=== PATIENT | female | born 1980 | race Caucasian/White ===

== ENCOUNTER 2021-10-10 14:18 | Emergency (ER) | payer OTHER, MEDICAID, SELFPAY ==
[2021-10-10 14:32] VITALS: PULSE 88; RESP 20; TEMP 36.8; O2SAT 100
[2021-10-10 14:37] VITALS: BP 137/96
--- NOTE | 2021-10-10 14:44 | CT_ITS ---
WS: [id number] CT HEAD NONCONTRAST HISTORY: Symptoms of Acute Stroke TECHNIQUE: Contiguous axial imaging performed through the brain in 2.5 mm imaging. Bone and soft tiss ue windows. Sagittal and coronal reformats reviewed. All CT scans at [facility] use at least one of these dose optimization techniques: automated exposure control; mA and/or kV adjustment per pa tient size (includes targeted exams where dose is matched to clinical indication); or iterative recon struction. DLP: 890.32 mGy.cm COMPARISON: None available. No acute intracranial hemorrhage, midline shift or mass effect. No atrophy or prior infarcts or herniation. Ventricles: Normal size with no hydrocephalus. Paranasal sinuses: As visualized are clear. Mastoid air cells: Well pneumatized. Calvarium and scalp: Skull is intact with no soft tissue edema or swelling. CT/CT head wo con* [id number] IMPRESSION: Negative head CT.
--- NOTE | 2021-10-10 14:44 | CT_ITS ---
WS: [id number] CT ANGIOGRAM CEREBRAL AND CAROTID ARTERIES HISTORY: L sided neck pain TECHNIQUE: CT angiogram is performed of the carotid and cerebral arteries. During arterial injection imaging is obtained from the skull vertex to the aortic arch in 1.25 mm imaging. Coronal and sagittal reformats are submitted. Additional multi planar reformats of the carotid and cerebral arteries are submitted, MIP imaging also reviewed. NASCET criteria utilized. [facility] at least one of these dose optimization techniques: automated exposure control; mA and/or kV adjust ment per patient size (includes targeted exams where dose is matched to clinical indication); or iter ative reconstruction. CONTRAST: Omnipaque 350; 95 mL IV. DLP: 2272.65 mGy.cm COMPARISON: Noncontrast head CT 10/10/2021 Carotid Angiogram: Right carotid: Common carotid artery: Arises normally from the innominate artery. No significant plaque or stenosis. Internal carotid artery: No plaque or stenosis. External carotid artery: Patent. Left carotid: Common carotid artery: Arises normally from the aorta. No significant plaque or stenosis. Internal carotid artery: No plaque or stenosis. External carotid artery: Patent. Right vertebral artery: Small caliber but patent. Left vertebral artery: Dominant and patent. Subclavian arteries: RIGHT subclavian arteries patent. Partial obscuration of the LEFT subclavian by contrast injection. The axillary vein is obscured. Upper thorax: Normal. Thyroid gland: Normal. Osseous structures: Unremarkable. CEREBRAL ANGIOGRAM: Intracranial vertebral arteries: Normal with no significant atherosclerosis. Basilar artery: No significant stenosis or occlusion. No aneurysm. Intracranial Internal carotid arteries: Demonstrates no significant stenosis or plaque. Middle cerebral arteries: Normal. Anterior cerebral arteries and ACOM: Normal. Posterior cerebral arteries and PCOM's: Normal. Dural venous sinuses are normally enhancing. Mastoid air cells: Normal. Paranasal sinuses: Normal. Calvarium: Normal. CT/CT angio headneck* [id number] IMPRESSION: 1. Normal carotid arteries. 2. Unremarkable [place].
--- NOTE | 2021-10-10 14:44 | ECG_ITS ---
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 Measurements Intervals [place] Rate: 93 P: 74 CO: 143 QRS: 63 QRSD: 86 T: 21 QT: 361 QTc: 450 Interpretive Statements SINUS RHYTHM NONSPECIFIC ST & T-WAVE ABNORMALITY No previous ECG available for comparison Electronically Signed On 10-10-2021 16:56:45 CDT by Charles Boone M.D. [id number]
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
--- NOTE | 2021-10-10 14:53 | PC.NURSE ---
EKG done at 1452
[2021-10-10 14:56] LABS: Glucose Point of Care 119 mg/dL (70-110)
[2021-10-10] MEDS: iohexol 350 mg/mL 100 mL Btl IV (15:03)
[2021-10-10 15:09] LABS: Basophils # 0.1 10^3/uL (0.0-0.1); Basophils % 1.3 %; Eosinophils # 0.8 10^3/uL (0.0-0.8); Eosinophils % 9.1 %; Hematocrit 43.2 % (37.0-47.0); Hemoglobin 13.4 g/dL (11.5-15.3); Lymphocytes # 3.4 10^3/uL (0.8-4.8); Mean Corpuscular Hemoglobin 29.5 pg (28.0-34.0); Mean Corpuscular Volume 95.2 fl (81-99); Mean Platelet Volume 9.2 fL (7.4-10.4); Monocytes # 0.9 10^3/uL (0.2-0.9); Monocytes % 10.4 %; Neutrophils # 3.35 10^3/uL (1.8-7.7); Neutrophils % 39.1 %; Nucleated Red Blood Cells % 0 %; Platelet Count 382 10^3/cmm (130-400); Red Blood Count 4.54 10^6/uL (4.1-5.3); Red Cell Distribution Width 12.5 % (12.1-15.1); White Blood Count 8.6 10^3/uL (4.0-10.0)
[2021-10-10] MEDS: metoclopramide 5 mg/mL SDV 2 mL 10 MG IVP (15:16)
[2021-10-10] MEDS: acetaminophen 500 mg Tablet PO (15:16)
[2021-10-10] MEDS: diphenhydrAMINE 50 mg/mL SDV 1mL IVP (15:16)
[2021-10-10] MEDS: magnesium sulfate premix 2 GM/50 ML PIGGYBACK IV (15:18)
[2021-10-10] MEDS: sodium chloride 0.9% 1,000 ML 999 ML IV (15:18)
[2021-10-10 15:39] LABS: Alanine Aminotransferase 36 U/L (0-33); Albumin Level 4.2 g/dL (3.5-5.2); Alkaline Phosphatase 51 IU/L (35-105); Aspartate Amino Transferase 29 U/L (0-32); Blood Urea Nitrogen 11 mg/dL (6-20); Calcium 8.7 mg/dL (8.5-10.5); Carbon Dioxide 23 mmol/L (22-29); Chloride 100 mmol/L (98-107); Globulin 3.2 g/dL (1.3-4.6); Glomerular Filtration Rate 55.3 mL/min (90-130); Glucose 115 mg/dL (65-115); Osmolality Calculated 282 mOsm/kg (285-295); Sodium 136 mmol/L (136-145); Total Bilirubin 0.3 mg/dL (0.15-1.2); Total Protein 7.4 g/dL (6.6-8.7)
[2021-10-10 15:44] VITALS: BP 127/75; PULSE 86; RESP 18; O2SAT 100
[2021-10-10 15:45] VITALS: BP 127/75; PULSE 80; RESP 18; O2SAT 100
[2021-10-10 16:00] LABS: INR 0.98 (0.8-1.2)
[2021-10-10 16:01] LABS: Partial Thromboplastin Time 25.5 SECONDS (23.9-36.7)
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
== END 2021-10-10 16:26 | disposition home or self-care (01) ==
PROVIDERS: Emergency Provider Emergency Medicine; PCP Family Medicine
DX: R20.2 Paresthesia of skin (principal); R51.9 Headache, unspecified
CPT/HCPCS: 36416; 70450; 70496; 70498; 80053; 82962; 85025; 85610; 85730; 93005; 96365; 96375; 99284; J1200; J2765; J3475; J7030; Q9967

== ENCOUNTER 2021-10-11 16:01 | Outpatient (CLI) | payer OTHER, MEDICAID, SELFPAY ==
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
== END 2021-10-11 16:02 | disposition home or self-care (01) ==
PROVIDERS: PCP Family Medicine; Visit Provider Family Medicine
DX: M54.12 Radiculopathy, cervical region (principal); M54.16 Radiculopathy, lumbar region; M54.6 Pain in thoracic spine
CPT/HCPCS: 72040; 72072; 72100

== ENCOUNTER 2021-11-08 06:00 | Outpatient (RCR) | payer OTHER, MEDICAID, SELFPAY | END 2021-11-13 23:59 | disposition home or self-care (01) | LOC: SPT 06:00 | PROVIDERS: PCP Family Medicine; Referring Provider Family Medicine; Visit Provider Family Medicine | DX: M54.16 Radiculopathy, lumbar region (principal); M54.12 Radiculopathy, cervical region; M54.6 Pain in thoracic spine | CPT/HCPCS: 97161 ==

== ENCOUNTER 2021-11-14 06:00 | Outpatient (RCR) | payer OTHER, MEDICAID, SELFPAY | END 2021-12-13 23:59 | disposition home or self-care (01) | LOC: SPT 06:00 | PROVIDERS: PCP Family Medicine; Referring Provider Family Medicine; Visit Provider Family Medicine | DX: M54.16 Radiculopathy, lumbar region (principal); M54.12 Radiculopathy, cervical region; M54.6 Pain in thoracic spine | CPT/HCPCS: 97110 ==

== ENCOUNTER → 2021-12-12 12:12 | Outpatient (BNVA) | payer OTHER, MEDICAID, SELFPAY | PROVIDERS: PCP Family Medicine; Visit Provider Family Medicine | DX: R25.2 Cramp and spasm (principal) | CPT/HCPCS: 83735; 84132 ==

== ENCOUNTER → 2022-01-04 08:56 | Outpatient (BNVA) | payer OTHER, MEDICAID, SELFPAY | PROVIDERS: PCP Family Medicine; Visit Provider Obstetrics & Gynecology | DX: Z00.00 Encounter for general adult medical examination without abnormal findings (principal) | CPT/HCPCS: 80061; 82947; 83036 ==

== ENCOUNTER 2022-01-09 11:20 | Outpatient (CLI) | payer OTHER, MEDICAID, SELFPAY ==
--- NOTE | 2022-01-09 11:40 | MR_ITS ---
WS: [id number] MRI LUMBAR SPINE NONCONTRAST TECHNIQUE: Sagittal T1, T2 and STIR imaging. Axial T1 and T2 imaging. CLINICAL INFORMATION: L LUMBAR RADICULOPATHY COMPARISON: Radiograph October 11, 2021 FINDINGS: Counting performed from the craniocervical junction. 5 lumbar vertebral bodies with lumbarized S1 seg ment for the purposes of this dictation. Anterior wedging previously described is T11 considered T12 for the purposes of this dictation. This has a chronic appearance. No edema or retropulsion. L1-L2: Normal. L2-L3: Mild annular bulging. Spinal canal and foramen are patent. Mild facet arthropathy. L3-L4: Mild annular bulging. Mild facet arthropathy. Spinal canal and foramen are patent. L4-L5: Slight retrolisthesis L4 on L5. Mild annular bulging. Small bilateral foraminal protrusions wi th mild LEFT greater than RIGHT foraminal narrowing. Mild facet arthropathy. L5-S1: No significant disc bulging. Mild facet arthropathy. Spinal canal and foramen are patent. S1-S2: S1 is lumbarized. Mild facet arthropathy. Spinal canal and foramen are patent. Visualized pelvic bony structures: Normal. Paravertebral soft tissues: Normal. MR/MR lumbar spine wo con* [id number] IMPRESSION: 1. Counting performed from the craniocervical junction. 5 lumbar type vertebra l bodies. S1 is lumbarized. Recommend plain film correlation prior to surgical intervention. 2. Mild anterior wedging at T12 has a chronic appearance. No retropulsion. No acute compression fractures. 3. Small bilateral foraminal protrusions L4-L5 with mild LEFT greater than RIG HT foraminal narrowing contacts the exiting LEFT greater than RIGHT L4 nerve ro ots. 4. Mild facet arthropathy L3-L4 and L4-L5.
== END 2022-01-09 11:21 | disposition home or self-care (01) ==
PROVIDERS: PCP Family Medicine; Visit Provider Family Medicine
DX: M54.16 Radiculopathy, lumbar region (principal); M48.54XA Collapsed vertebra, not elsewhere classified, thoracic region, initial encounter for fracture; M51.26 Other intervertebral disc displacement, lumbar region; M47.816 Spondylosis without myelopathy or radiculopathy, lumbar region
CPT/HCPCS: 72148

== ENCOUNTER → 2022-05-06 09:13 | Outpatient (BNVA) | payer OTHER, SELFPAY | PROVIDERS: PCP Family Medicine; Visit Provider Family Medicine | DX: E78.1 Pure hyperglyceridemia (principal); Z13.220 Encounter for screening for lipoid disorders | CPT/HCPCS: 80061 ==

== ENCOUNTER → 2022-10-07 10:22 | Outpatient (BNVA) | payer OTHER, SELFPAY | PROVIDERS: PCP Family Medicine; Visit Provider Family Medicine | DX: M25.50 Pain in unspecified joint (principal); Z51.81 Encounter for therapeutic drug level monitoring; R53.81 Other malaise; R53.83 Other fatigue | CPT/HCPCS: 80053; 84439; 84443; 85025; 85651; 86038; 86141 ==

== ENCOUNTER → 2022-12-09 10:57 | Outpatient (BNVA) | payer OTHER, SELFPAY | PROVIDERS: PCP Family Medicine; Visit Provider Anesthesiology Pain Medicine | DX: M47.816 Spondylosis without myelopathy or radiculopathy, lumbar region (principal); M51.36 Other intervertebral disc degeneration, lumbar region | CPT/HCPCS: 99214 ==

== ENCOUNTER → 2022-12-30 14:35 | Outpatient (BNVA) | payer OTHER, SELFPAY | PROVIDERS: PCP Family Medicine; Visit Provider Nurse Practitioner Family | DX: L71.8 Other rosacea (principal); L81.4 Other melanin hyperpigmentation; D22.39 Melanocytic nevi of other parts of face | CPT/HCPCS: 99214 ==

== ENCOUNTER → 2023-01-02 14:47 | Outpatient (BNVA) | payer OTHER, SELFPAY | PROVIDERS: PCP Family Medicine; Visit Provider Anesthesiology Pain Medicine | DX: M54.16 Radiculopathy, lumbar region (principal); M47.816 Spondylosis without myelopathy or radiculopathy, lumbar region; M51.36 Other intervertebral disc degeneration, lumbar region | CPT/HCPCS: 62323; J1040 ==

== ENCOUNTER → 2023-01-16 09:34 | Outpatient (BNVA) | payer OTHER, SELFPAY | PROVIDERS: PCP Family Medicine; Visit Provider Anesthesiology Pain Medicine | DX: M47.816 Spondylosis without myelopathy or radiculopathy, lumbar region; M51.36 Other intervertebral disc degeneration, lumbar region | CPT/HCPCS: 84439; 84443; 85651; 86141; 86431; 99213 ==

== ENCOUNTER → 2023-02-13 14:19 | Outpatient (BNVA) | payer OTHER, SELFPAY | PROVIDERS: PCP Family Medicine; Visit Provider Student in an Organized Health Care Education/Training Program | DX: S73.191A Other sprain of right hip, initial encounter; V89.2XXA Person injured in unspecified motor-vehicle accident, traffic, initial encounter | CPT/HCPCS: 73502; 99203 ==

== ENCOUNTER 2023-02-26 15:24 | Outpatient (CLI) | payer OTHER, MEDICAID, SELFPAY ==
--- NOTE | 2023-02-26 15:33 | MM_ITS ---
WS: [id number] BILATERAL 3D TOMOSYNTHESIS DIGITAL SCREENING MAMMOGRAM WITH CAD CLINICAL INFORMATION: Z12.39 - Encounter for other screening for malignant neop... HISTORY: Screening mammogram. RIGHT breast always larger. COMPARISON: None. TECHNIQUE: Bilateral CC and MLO views. FINDINGS: Fatty-replaced breasts bilaterally. Asymmetric larger RIGHT breast. No suspicious focal mass, asymmet ry, calcifications, or architectural distortion. No evidence of malignancy. A few incidental punctate calcifications. IMPRESSION: MM/[place] [id number] BI-RADS: 2-Benign FOLLOW UP: 1 Year Follow-up Recommend return to annual screening mammography.
== END 2023-02-26 15:25 | disposition home or self-care (01) ==
PROVIDERS: PCP Family Medicine; Visit Provider Nurse Practitioner Women's Health
DX: Z12.31 Encounter for screening mammogram for malignant neoplasm of breast (principal)
CPT/HCPCS: 77063; 77067

== ENCOUNTER → 2023-03-07 15:11 | Outpatient (BNVA) | payer OTHER, MEDICAID, SELFPAY | PROVIDERS: PCP Family Medicine; Visit Provider Obstetrics & Gynecology | DX: R32 Unspecified urinary incontinence (principal) | CPT/HCPCS: 81000 ==

== ENCOUNTER → 2023-04-01 15:17 | Outpatient (BNVA) | payer OTHER, MEDICAID, SELFPAY | PROVIDERS: PCP Family Medicine; Visit Provider Student in an Organized Health Care Education/Training Program | DX: S73.191A Other sprain of right hip, initial encounter (principal); M25.851 Other specified joint disorders, right hip; X58.XXXA Exposure to other specified factors, initial encounter | CPT/HCPCS: 99213 ==

== ENCOUNTER → 2023-04-15 15:08 | Outpatient (BNVA) | payer OTHER, MEDICAID, SELFPAY | PROVIDERS: PCP Family Medicine; Visit Provider Physician Assistant | DX: S22.080A Wedge compression fracture of T11-T12 vertebra, initial encounter for closed fracture; M47.816 Spondylosis without myelopathy or radiculopathy, lumbar region; X58.XXXA Exposure to other specified factors, initial encounter | CPT/HCPCS: 72072; 99203 ==

== ENCOUNTER → 2023-04-30 10:17 | Outpatient (BNVA) | payer OTHER, MEDICAID, SELFPAY | PROVIDERS: PCP Family Medicine; Visit Provider Anesthesiology Pain Medicine | DX: M54.16 Radiculopathy, lumbar region (principal); M47.816 Spondylosis without myelopathy or radiculopathy, lumbar region; M51.36 Other intervertebral disc degeneration, lumbar region | CPT/HCPCS: 99214 ==

== ENCOUNTER → 2023-05-05 09:25 | Outpatient (BNVA) | payer OTHER, MEDICAID, SELFPAY | PROVIDERS: PCP Family Medicine; Visit Provider Family Medicine | DX: E03.9 Hypothyroidism, unspecified (principal) | CPT/HCPCS: 84439; 84443 ==

== ENCOUNTER 2023-05-22 07:04 | Outpatient (CLI) | payer OTHER, MEDICAID, SELFPAY ==
--- NOTE | 2023-05-22 07:15 | MR_ITS ---
WS: [id number] MRI THORACIC SPINE WITHOUT CONTRAST TECHNIQUE: Sagittal T1, T2 and STIR imaging. Axial T2 imaging. Noncontrast imaging obtained. CLINICAL INFORMATION: back pain COMPARISON: None. FINDINGS: Mild thoracic curve. Mild thoracic kyphosis. No acute compression fractures. Chronic anterior wedging at T12. No edema. Minimal disc bulging at T11-T12 and T12-L1. No significant spinal canal or foramin al narrowing. Mild facet arthropathy lower thoracic spine. Normal caliber thoracic aorta. Adrenal glands are normal. Normal paravertebral soft tissues. No other suspicious findings. IMPRESSION: 1. Mild thoracic curve and mild thoracic kyphosis. No acute compression fractures. 2. Mild chronic anterior wedging at T12. No edema. 3. Mild facet arthropathy lower thoracic spine. 4. No other suspicious findings.
== END 2023-05-22 07:05 | disposition home or self-care (01) ==
LOC: RAD 07:04
PROVIDERS: PCP Family Medicine; Visit Provider Physician Assistant
DX: M40.204 Unspecified kyphosis, thoracic region (principal); M48.54XA Collapsed vertebra, not elsewhere classified, thoracic region, initial encounter for fracture; M47.814 Spondylosis without myelopathy or radiculopathy, thoracic region
CPT/HCPCS: 72146

== ENCOUNTER → 2023-05-29 08:51 | Outpatient (BNVA) | payer OTHER, MEDICAID, SELFPAY | PROVIDERS: PCP Family Medicine; Visit Provider Physician Assistant | DX: M47.816 Spondylosis without myelopathy or radiculopathy, lumbar region (principal); S22.080D Wedge compression fracture of T11-T12 vertebra, subsequent encounter for fracture with routine healing; X58.XXXD Exposure to other specified factors, subsequent encounter; S73.191A Other sprain of right hip, initial encounter; X58.XXXA Exposure to other specified factors, initial encounter | CPT/HCPCS: 99214 ==

== ENCOUNTER → 2023-06-05 10:20 | Outpatient (BNVA) | payer OTHER, MEDICAID, SELFPAY | PROVIDERS: PCP Family Medicine; Visit Provider Anesthesiology Pain Medicine | DX: M51.36 Other intervertebral disc degeneration, lumbar region (principal); M47.816 Spondylosis without myelopathy or radiculopathy, lumbar region | CPT/HCPCS: 99214 ==

== ENCOUNTER → 2023-06-19 15:43 | Outpatient (BNVA) | payer OTHER, MEDICAID, SELFPAY | PROVIDERS: PCP Family Medicine; Visit Provider Nurse Practitioner Family | DX: R68.89 Other general symptoms and signs (principal); B34.9 Viral infection, unspecified | CPT/HCPCS: 87804 ==

== ENCOUNTER → 2023-07-01 15:33 | Outpatient (BNVA) | payer OTHER, MEDICAID, SELFPAY | PROVIDERS: PCP Family Medicine; Visit Provider Orthopaedic Surgery | DX: M47.22 Other spondylosis with radiculopathy, cervical region (principal) | CPT/HCPCS: 72050; 99214 ==

== ENCOUNTER → 2023-07-03 10:04 | Outpatient (BNVA) | payer OTHER, SELFPAY | PROVIDERS: PCP Family Medicine; Visit Provider Anesthesiology Pain Medicine | DX: M47.816 Spondylosis without myelopathy or radiculopathy, lumbar region; M51.36 Other intervertebral disc degeneration, lumbar region | CPT/HCPCS: 99214 ==

== ENCOUNTER → 2023-08-04 09:57 | Outpatient (BNVA) | payer OTHER, SELFPAY | PROVIDERS: PCP Family Medicine; Visit Provider Family Medicine | DX: R53.83 Other fatigue | CPT/HCPCS: 83036; 84443 ==

== ENCOUNTER 2023-08-28 15:57 | Outpatient (CLI) | payer OTHER, SELFPAY ==
--- NOTE | 2023-08-28 16:45 | MR_ITS ---
WS: [id number] MRI CERVICAL SPINE NONCONTRAST TECHNIQUE: Sagittal T1, T2 and STIR imaging. Axial T2, gradient, and fiesta imaging. CLINICAL INFORMATION: neck pain COMPARISON: None. FINDINGS: Straightening with slight reversal of normal cervical lordosis. Disc bulging worse at C3-C4 C4-C5 C5- C6 and C6-C7. No high-grade central canal stenosis. Cord signal is normal. Slight anterolisthesis C2 on C3. C2-C3: Normal. C3-C4: Mild LEFT and no significant RIGHT foraminal narrowing. Mild facet arthropathy. C4-C5: Mild disc osteophytic ridging. Mild LEFT and no significant RIGHT foraminal narrowing. Mild fa cet arthropathy. Spine canal is patent. C5-C6: Disc osteophyte complex with endplate ridging. Moderate LEFT and mild RIGHT bony foraminal alpa rowing. Uncovertebral joint hypertrophy. Mild facet arthropathy. C6-C7: Mild disc osteophyte complex with endplate ridging. Moderate to severe LEFT and no significant RIGHT foraminal narrowing. Spinal canal is patent. C7-T1: Spinal canal and foramen are patent. Visualized brain stem structures: Normal. Prevertebral soft tissues: Normal. IMPRESSION: 1. Straightening of the normal cervical dosis with slight reversal. 2. Slight anterolisthesis C2 on C3. 3. Moderate LEFT C5-C6 and moderate to severe LEFT C6-7 bony foraminal narrowing. 4. Mild disc osteophyte complexes C5-C6 and C6-C7.
== END 2023-08-28 15:58 | disposition home or self-care (01) ==
LOC: RAD 15:58
PROVIDERS: PCP Family Medicine; Visit Provider Orthopaedic Surgery
DX: M48.02 Spinal stenosis, cervical region (principal); M25.78 Osteophyte, vertebrae
CPT/HCPCS: 72141

== ENCOUNTER → 2023-12-11 09:49 | Outpatient (BNVA) | payer OTHER, SELFPAY | PROVIDERS: PCP Family Medicine; Visit Provider Family Medicine | DX: E03.9 Hypothyroidism, unspecified (principal); R25.2 Cramp and spasm; E55.9 Vitamin D deficiency, unspecified | CPT/HCPCS: 80048; 82306; 83735; 84439; 84443 ==

== ENCOUNTER → 2024-02-04 14:27 | Outpatient (BNVA) | payer OTHER, SELFPAY | PROVIDERS: PCP Family Medicine; Visit Provider Nurse Practitioner Women's Health | DX: Z12.4 Encounter for screening for malignant neoplasm of cervix (principal) | CPT/HCPCS: 87624 ==

== ENCOUNTER 2024-03-31 14:24 | Outpatient (CLI) | payer OTHER, SELFPAY ==
--- NOTE | 2024-03-31 14:28 | MM_ITS ---
WS: [id number] Bilateral screening 3D tomosynthesis digital mammogram, 03/31/2024 2:35 PM Clinical Data: Z12.39 - Encounter for other screening for malignant neop... Comparison: 02/26/2023 Findings: No spiculated masses or clustered calcifications are seen. There are no secondary signs of carcinoma . The right breast is larger than the left. MM/MM scr BI tomosynthesis [id number] Impression: Negative bilateral mammogram unchanged. Recommend annual screening mammograms. BIRADS: 1 - Negative. FOLLOW UP: 1 Year Follow-up DENSITY: The breasts are almost entirely fatty. The CAD land checker was used
== END 2024-03-31 14:25 | disposition home or self-care (01) ==
LOC: RAD 14:25
PROVIDERS: PCP Family Medicine; Visit Provider Nurse Practitioner Women's Health
DX: Z12.31 Encounter for screening mammogram for malignant neoplasm of breast (principal)
CPT/HCPCS: 77063; 77067

== ENCOUNTER → 2024-04-07 13:12 | Outpatient (BNVA) | payer OTHER, SELFPAY | PROVIDERS: PCP Family Medicine; Visit Provider Nurse Practitioner Family | DX: J02.9 Acute pharyngitis, unspecified (principal) | CPT/HCPCS: 87880 ==

== ENCOUNTER 2024-06-08 12:46 | Outpatient (RCR) | payer OTHER, SELFPAY | END 2024-06-15 23:59 | disposition home or self-care (01) | LOC: SPT 12:46 | PROVIDERS: Visit Provider Orthopaedic Surgery | DX: M25.851 Other specified joint disorders, right hip (principal) | CPT/HCPCS: 97110; 97116; 97161 ==

== ENCOUNTER 2024-06-16 06:00 | Outpatient (RCR) | payer OTHER, SELFPAY | END 2024-07-16 23:59 | disposition home or self-care (01) | LOC: SPT 06:00 | PROVIDERS: Visit Provider Orthopaedic Surgery | DX: Z98.890 Other specified postprocedural states (principal); M25.851 Other specified joint disorders, right hip | CPT/HCPCS: 97110 ==

== ENCOUNTER → 2024-06-25 10:18 | Outpatient (BNVA) | payer OTHER, SELFPAY | PROVIDERS: PCP Family Medicine; Visit Provider Family Medicine | DX: E03.9 Hypothyroidism, unspecified (principal) | CPT/HCPCS: 84439; 84443 ==

== ENCOUNTER 2024-07-17 06:00 | Outpatient (RCR) | payer OTHER, SELFPAY | END 2024-08-13 23:59 | disposition home or self-care (01) | LOC: SPT 06:00 | PROVIDERS: PCP Family Medicine; Visit Provider Orthopaedic Surgery | DX: Z98.890 Other specified postprocedural states (principal); M25.851 Other specified joint disorders, right hip | CPT/HCPCS: 97110 ==

== ENCOUNTER 2024-08-14 06:30 | Outpatient (RCR) | payer OTHER, SELFPAY | END 2024-09-13 23:59 | disposition home or self-care (01) | LOC: SPT 06:30 | PROVIDERS: PCP Family Medicine; Visit Provider Orthopaedic Surgery | DX: Z98.890 Other specified postprocedural states (principal); M25.851 Other specified joint disorders, right hip | CPT/HCPCS: 97110 ==

== ENCOUNTER 2024-09-14 05:00 | Outpatient (RCR) | payer OTHER, SELFPAY | END 2024-10-13 23:59 | disposition home or self-care (01) | LOC: SPT 05:00 | PROVIDERS: PCP Family Medicine; Visit Provider Orthopaedic Surgery | DX: M25.851 Other specified joint disorders, right hip (principal); Z98.890 Other specified postprocedural states | CPT/HCPCS: 97110 ==

== ENCOUNTER 2025-04-01 09:57 | Outpatient (CLI) | payer OTHER, SELFPAY ==
--- NOTE | 2025-04-01 10:00 | MM_ITS ---
WS: [email or web address] BILATERAL SCREENING DIGITAL TOMOSYNTHESIS MAMMOGRAM WITH CAD HISTORY: Z12.39 - Encounter for other screening for malignant neop... COMPARISON: 03/31/2024 Bilateral CC and MLO views with tomosynthesis and synthetic mammography submitted. Computer aided detection analyzed. Breast composition: There are scattered areas of fibroglandular density. No suspicious masses, microcalcifications or architectural distortion. MM/MM scr BI tomosynthesis [id number] IMPRESSION: BI-RADS: 1 - Negative. FOLLOW UP: 1 Year Follow-up
== END 2025-04-01 09:58 | disposition home or self-care (01) ==
LOC: RAD 09:58
PROVIDERS: PCP Family Medicine; Visit Provider Nurse Practitioner Women's Health
DX: Z12.31 Encounter for screening mammogram for malignant neoplasm of breast (principal); R92.323 Mammographic fibroglandular density, bilateral breasts
CPT/HCPCS: 77063; 77067

== ENCOUNTER 2025-04-27 01:24 | Emergency (ER) | payer OTHER, SELFPAY ==
[2025-04-27] VITALS (10 sets, daily range): BP systolic 95–140; BP diastolic 61–96; PULSE 79–104; RESP 16; TEMP 36.5; O2SAT 95–100; BMI 27.6
--- OUTSIDE RECORDS SUMMARY | 2025-04-27 01:32 | XMS_ITS | Encounter Summary ---
Author Organization [facility] Address [address] [place] [address] Care Team Providers Care Box Maker Name Role Phone Gurjit Echevarria MD Primary Care Provider Encounter Details Date Type Department Care Team (Late Contact Info) Description 04/20/2025 External Device Data [facility] Provider, Abstract NO ADDRESS ON FILE Social History Tobacco Use Types Packs/Day Years Used Date Smoking Tobacco: Never Smokeless Tobacco: Never Alcohol Use Standard Drinks/Week Comments No 0 (1 standard drink = 0.6 oz pur e alcohol) Feeling Safe Answer Date Recorded Are you in a relationship wi th someone who hurts you emotionally and/or physically? 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 Gender Identity Female 12/25/2023 9:51 PM CDT Sexual Orientation Straight 12/25/2023 9: 51 PM CDT documented as of this encounter Plan of Treatment Upcoming Encounters Date Type Department Care Team (Late Contact Info) Description 07/04/2025 2:30 PM PLAYER PIANO TECHNICIAN Office Visit [facility] [place] [address] [place] [address] Gaby Levy NP [address] [place] [address] documented as of this encounter Visit Diagnoses Not on filedocumented in this encounter Care Teams Box Maker Relationship Specialty Start Date End Date Gurjit Echevarria MD [facility] [place] [address] PCP - General Family Practice 04/20/24 documented as of this encounter
--- OUTSIDE RECORDS SUMMARY | 2025-04-27 01:32 | XMS_ITS | Clinical Summary ---
Author Organization [facility] Address [address] Welch: [place] [address] Care Team Providers Care Heel Seat Sander Name Role Phone Gurjit Echevarria MD Primary Care Provider [phone] Allergies Active Allergy Reactions Criticality Noted Date Comments Adhesive Rash Low 07/29/2023 Kiwi Other (See Comments) 05/25/2024 Lips became itchy Medications levothyroxine 75 mcg tablet Take 75 mcg by mouth daily in the morning. Active cetirizine (ZyrTEC) 5 mg tablet Take 5 mg by mouth daily. Active melatonin 1 mg Tablet Take by mouth nightly as needed. Active Magnesium Hydroxide 400 mg (170 mg magnesium) Tablet, Chewable Take by mouth. Activ e semaglutide (OZEMPIC SUBCUT) Inject by subcutaneous injection every 7 days. Active omeprazole (PriLOSEC) 20 mg Capsule, Delayed Release(E.C.) Take 20 mg by mouth daily. Active vit-iron fumarate-fa (JORJE ) 28 mg iron- 800 mcg Tablet Take 1 Tablet by mouth daily. Active Tyler Fe /, 28, 1 mg-20 mcg (21)/75 mg (7) tablet Take 1 Tablet by mouth daily at bedtime. 4 Active HYDROcodone-sylvester taminophen (NORCO) 5-325 mg tabletIndicatio ns:Tear of right acetabular labrum, initial encounter Take 1 Tablet by mouth every 6 hours as needed for Pain, Moderate. Max Daily Amount: 4 Tablets 42 Tablet 4 Active diazePAM (Valium) 5 mg tabletIndicatio ns:Tear of right acetabular labrum, initial encounter Take 1 Tablet (5 mg) by mouth every 8 hours as needed for Spasm. 30 Tablet 4 Active naloxone (NARCAN) 4 mg/spray [place] [facility], Non-Aerosol EMERGENCY USE ONLY: Administer 1 spray (4 mg) in one nostril one time. May repeat in alternating nostrils every 2-3 min until responsive or EMS arrives. 2 Each 3 4 Active trospium (SANCTURA XR) 60 mg Extended Release 24 hour capsule Take 1 Capsule (60 mg) by mouth daily. 90 Capsule 3 5 Active baclofen (LIORESAL) 10 mg tablet take 1 tablet by mouth twice daily as needed for 30 days Active Active Problems Problem Noted Date Diagnosed Date Depression 06/12/2012 Anxiety 08/06/2011 HSIL on Pap smear of cervix 02/21/2011 Large breasts 11/21/2010 Eczema 11/21/2010 Resolved Problems Problem Noted Date Diagnosed Date Resolved Date Inter-twin discordance, antepartum 07/05/2009 08/06/2011 GBS (group B Streptococcus c arrier), +RV culture, currently 06/23/2009 12/28/2010 , twins 04/14/2009 12/28/2010 Supervision of normal first 12/27/2008 12/28/2010 BV (Bacterial Vaginosis) - treated 12/2212/27/2008 08/06/2011 Encounters Date Type Department Care Team Description 04/20/2025 External Device Data [facility] ABSTRACTION Provider, Abstract 04/13/2025 External Device Data [facility] ABSTRACTION Provider, Abstract 04/05/2025 External Device Data [facility] ABSTRACTION Provider, Abstract from Last 3 Months Immunizations Immunization Administration Dates Next Due (M-M-R II/PRIORIX)(12 MO UP) MEASLES, MUMPS AND RUBELLA VIRUS VACCINE, 0.5 ML IM/SUBCUT 09/26/2000 (TDVAX)(7 YRS UP) TETANUS AN D DIPHTHERIA TOXOIDS, ADSORBED (2 LF OF TETANUS TOXOID AND 2 LF OF DIPHTHERIA TOXOID), 0.5ML (PF), IM 09/13/2005,01/01/1996 Hepatitis A Vaccine 09/26/2000,03/28/2000 Hepatitis B Vaccine 09/26/2000,05/07/2000,1999 Influenza Seasonal Unspecifi ed Formulation IM 03/18/2011,03/13/2010 Family History Medical History Relation Name Comments Arthritis-osteo Father High Cholesterol Father Diabetes Maternal Grandfather Diabetes Maternal Grandmother Lung Cancer Maternal Grandmother Diabetes Mother High Cholesterol Mother Hypertension Mother Other Mother Ovarian Cyst Cancer Other 1 GF leukemia/skin Heart Disease Other 1 GF Emphysema Other 2 GM Relation Name Status Comments Brother Alive Father Alive Maternal Grandfather Maternal Grandmother Mother Alive Other 1 GF Other 2 GM Social History Tobacco Use Types Packs/Day Years Used Date Smoking Tobacco: Never Smokeless Tobacco: Never Tobacco Cessation:Counseling Given: Not Answered Alcohol Use Standard Drinks/Week Comments No 0 (1 standard drink = 0.6 oz pur e alcohol) Feeling Safe Answer Date Recorded Are you in a relationship wi th someone who hurts you emotionally and/or physically? No 06/07/2024 Comments No Sex and Gender Information Value Date Recorded Sex Assigned at Female 12/25/2023 9:51 PM CDT Legal Sex Female 3:23 PM [employer] Gender Identity Female 12/25/2023 9:51 PM CDT Sexual Orientation Straight 12/25/2023 9: 51 PM CDT Last Filed Vital Signs Vital Sign Reading Time Taken Comments Blood Pressure 106/70 09/02/2024 10:04 AM CDT Pulse 86 06/07/2024 5:00 PM [employer] Temperature 36.8 C (98.3 F) 06/07/2024 4:07 PM [employer] Respiratory Rate 9 06/07/2024 4:00 PM [employer] Oxygen Saturation 97% 06/07/2024 5:00 PM [employer] Inhaled Oxygen Concentration - - Weight 94.7 kg (208 lb 11.2 oz) 025 10:04 AM CDT Height 170.2 cm (5' 7 ) 09/02/2024 10:0 4 AM CDT Body Mass Index 32.69 09/02/2024 10:04 AM CDT Plan of Treatment Upcoming Encounters Date Type Department Care Team (Late st Contact Info) Description 07/04/2025 2:30 PM [employer] Office Visit [address] [place] [phone] Gaby Levy NP [address] [phone] Health Maintenance Due Date Last Done Comments Pre-Diabetes and Diabetes Screening 1982 HPV/Cotest (21-29) 10/10/2003 DTAP/TDAP/TD VACCINES (2 - Tdap) 09/14/2005 09/14/19, 01/01/1996 HPV VACCINES (1 - 3-dose SCD M series) 2009 HPV/Cotest (30-65) 2012 CERVICAL CANCER SCREENING 10/15/2014 PAP SMEAR 10/15/2014 10/16/2011, 06/17, 11/21/2010, Additional history exists BREAST CANCER SCREENING 2022 INFLUENZA VACCINE (#1) 2025 , 03/24/2023, 03/18/2011, Additional history exists HEPATITIS B VACCINES Completed 09/26/2000, 09/26/2000, 05/07/2000, Additional history exists COVID-19 Vaccine Completed 03/08/2024, 10/2020, 08/28/2020 Medical Devices Implanted Type Area Home Health Aide Caregiver Device Identifier Shelf Expiration Date Model / Serial / Lot [place] Suture Pivot Nanotack 1.4mm [id number] - [id number] Implanted:Qty: 1 on 06/07/2024 by Sergio Vazquez III, MD at [facility] [place] Right: Hip [employer] - ENDOSCOPY [id number] 06/01/2025 [id number] / / [id number] [place] Suture 2.4mm Cinchloc [id number] - [id number] Implanted:Qty: 1 on 06/07/2024 by Sergio Vazquez III, MD at [facility] [place] Right: Hip [employer] - ENDOSCOPY [id number] 06/28/2025 [id number] / / [id number] [place] Suture 2.4mm Cinchloc [id number] - [id number] Implanted:Qty: 1 on 06/07/2024 by Sergio Vazquez III, MD at [facility] [place] Right: Hip [employer] - ENDOSCOPY [id number] 07/08/2025 [id number] / / [id number] [place] Suture 2.4mm Cinchloc [id number] - [id number] Implanted:Qty: 1 on 06/07/2024 by Sergio Vazquez III, MD at [facility] [place] Right: Hip [employer] - ENDOSCOPY [id number] 06/28/2025 [id number] / / [id number] [place] Suture Tape Xbraid S 2-N 39in Wht/Blck [id number] - [id number] Implanted:Qty: 1 on 06/07/2024 by Sergio Vazquez III, MD at [facility] [place] Right: Hip [employer] - ENDOSCOPY [id number] 11/13/2028 [id number] / / [id number] Insurance [employer] OA Advance Directives For more information, please contact: [phone] * Full Code (Latest Code Status on File) Date Activated Date Inactivated Comments 06/07/2024 11:26 AM 06/07/2024 7:23 PM Care Teams Heel Seat Sander Relationship Specialty Start Date End Date Gurjit Echevarria MD [address] [place] [phone] PCP - General Family Practice 04/20/24
[2025-04-27 02:05] LABS: Add Urine Microscopic? YES; UA Manual Slide Review YES
[2025-04-27 02:08] LABS: HCG Qualitative Urine. Negative (Negative)
[2025-04-27 02:56] LABS: Glucose Urine UA Negative (Normal); Nitrate Urine Negative (Negative); Specific Gravity, Urine 1.021 (1.005-1.030)
[2025-04-27 03:01] LABS: Add Urine Microscopic? YES
--- NOTE | 2025-04-27 03:11 | CTR_ITS ---
PROCEDURE INFORMATION: Exam: CT Abdomen And Pelvis Without Contrast Exam date and time: 04/27/2025 3:24 AM Age: 44 years old Clinical indication: Abdominal pain; Additional info: Llq/groin pain TECHNIQUE: Imaging protocol: Computed tomography of the abdomen and pelvis without contrast. Radiation optimization: All CT scans at this facility use at least one of these dose optimization techniques: automated exposure control; mA and/or kV adjustment per patient size (includes targeted exams where dose is matched to clinical indication); or iterative reconstruction. COMPARISON: CR XR hip RT 2-3V wo/w pel* [id number] 02/13/2023 2:37 PM RADIATION DOSE METRICS: Total DLP (mGy-cm): 655.21 FINDINGS: Liver: Normal. No mass. Gallbladder and biliary ducts: Normal. No calcified stones. No ductal dilation. Pancreas: Normal. No ductal dilation. Spleen: Normal. No splenomegaly. Adrenal glands: Normal. No mass. Kidneys and ureters: No nephrolithiasis, hydronephrosis, or obstructive uropathy. Stomach and bowel: Unremarkable. No obstruction. No mucosal thickening. Appendix: No evidence of appendicitis. Intraperitoneal space: Unremarkable. No free air. No significant fluid collection. Vasculature: Unremarkable. No abdominal aortic aneurysm. Lymph nodes: Unremarkable. No enlarged lymph nodes. Urinary bladder: Unremarkable as visualized. Reproductive: Unremarkable as visualized. Bones/joints: Unremarkable. No acute fracture. Soft tissues: Unremarkable. CT/CT kidney stone [id number] IMPRESSION: No nephrolithiasis, hydronephrosis, or obstructive uropathy.
[2025-04-27] MEDS: ondansetron 2 mg/ML SDV 2 mL 4 MG IVP (03:17)
[2025-04-27 03:24] LABS: Hematocrit 36.4 % (36-47); Hemoglobin 12.50 g/dL (11.27-16.99); Mean Corpuscular HGB Conc 34.3 g/dL (30-55); Mean Corpuscular Hemoglobin 31.6 pg (27-33); Mean Corpuscular Volume 91.9 fl (85-98); Nucleated Red Blood Cells % 0 %; Platelet Count 410 10^3/cmm (157-399); Red Blood Count 3.96 10^6/uL (3.85-5.65); White Blood Count 10.30 10^3/uL (3.29-11.43)
--- NOTE | 2025-04-27 03:28 | W.ED.FEMALGU ---
HPI - Female Genitourinary General: Chief complaint: Urogenital-Female Stated complaint: Pelvis and ABD Pain\N Time Seen by Provider: 04/27/25 01:28 History of Present Illness: Patient is a 44-year-old female presenting with a chief complaint of suprapubic pain, discomfort with urination/burning pain w/urination, radiation of pain to the left upper quadrant and back. Patient states that symptoms started this evening and woke her up from sleep. She has not had fever, chills or malaise. She denies any chest pain or shortness of breath. She denies hemoptysis, syncope or leg swelling. No vomiting. She has felt nauseated when the pain was at its worst, 10 at home. Patient denies any abnormal vaginal discharge, pain with intercourse or new sexual partners. No change in bowel habits. She does not have a history of kidney stone. Related Data Home Medications ?Medication ?Instructions ?Recorded ?Confirmed cetirizine 10 mg tablet (Zyrtec) 10 mg PO BEDTIME 10/10/21 02/15/25 trospium 60 mg capsule,extended 60 mg PO DAILY 07/29/23 02/15/25 release 24 hr semaglutide 1 mg/dose (4 mg/3 mL) 1 mg SUBCUT 01/26/24 02/15/25 subcutaneous pen injector Previous Rx's ?Medication ?Instructions ?Recorded ivermectin 1 % topical cream 1 applic topical DAILY #45 grams 06/05/22 (Soolantra) etonogestrel 0.12 mg-ethinyl 1 vag ring vaginal .ONCE EVERY 4 02/15/25 estradiol 0.015 mg/24 hr vaginal WEEKS #3 ea ring (NuvaRing) levothyroxine 75 mcg tablet See Rx Instructions .Route 02/24/25 .COMPLEX #90 tabs COVID vaccine #1 ea 03/15/25 sulfamethoxazole 800 1 tab PO BID 7 days #14 tabs 04/27/25 mg-trimethoprim 160 mg tablet (Bactrim DS) Allergies Allergy/AdvReac Type Severity Reaction Status Date / Time adhesive Allergy ALGY-Rash Verified 02/15/25 15:32 PFSH ED PFS: Medical History (Updated 04/27/25 @ 05:41 by Loreto Middleton MD) Hypothyroidism followed by [facility] Eczema Controlled with medication-allergy medicine. Surgical History S/P LEEP Had a LEEP procedure in 2010 at [place] for an abnormal Pap smear. States that all Pap smears after this have been normal. Family History Mother Hypertension Diabetes Grandmother Lung cancer Paternal Grandfather Diabetes Paternal Heart disease paternal Leukemia maternal Brother Diabetes Family/Other Breast cancer paternal aunt; diagnosed at age 70 Advanced cirrhosis of liver paternal aunt Denies family history of Colon cancer Ovarian cancer Hyperlipidemia Uterine cancer Thyroid disease Stroke Social History Smoking and tobacco/nicotine status: never used tobacco/nicotine Alcohol intake: never Substance/Drug Use: never Physical Exam Narrative: EXAM NARRATIVE: Vital signs were reviewed. Patient is alert and oriented. Patient is breathing comfortably, no increased WOB or accessory muscle use. SpO2 is above 95% on RA. Patient has clear lungs b/l, no rhonchi, wheezing or crackles. No hypotension or tachycardia. Abdomen is soft, nondistended. Patient has mild suprapubic discomfort. No CVA tenderness w/percussion of the flanks. Patient is moving all extremities, no deformity or gross injury. No lower extremity edema or asymmetry. Course Vital Signs: Vital signs: Vital Signs Temperature 97.7 F 04/27/25 01:25 Pulse Rate 83 04/27/25 06:04 Respiratory Rate 16 04/27/25 06:04 Blood Pressure 95/63 04/27/25 06:04 Pulse Oximetry 98 04/27/25 06:04 Oxygen Delivery Me thod Room Air 04/27/25 01:25 MDM - Female Medical Decision Making 44-year-old female presents with a chief complaint of suprapubic abdominal pain, dysuria, pain radiating to the left upper abdomen and back. Differential diagnosis includes but is limited to, urinary tract infection, pyelonephritis, nephrolithiasis, cervicitis, PID, ovarian torsion, ovarian cyst, , ectopic , appendicitis, other. On exam, patient is helically stable and nontoxic-appearing. She was evaluated CBC, BMP, UA, beta-hCG, CT of the abdomen pelvis stone protocol. She was treated with IV Toradol, IV Zofran. She has a normal white blood cell count, is afebrile and does not have a definitive CVA tenderness. Her presentation is not consistent with urinary tract infection. Patient appears to have hematuria, increased white blood cells and 1+ bacteria which may be consistent with a urinary tract infection. She is negative for chlamydia, gonorrhea, denies abnormal pelvic discharge, new sexual partners, pain with intercourse; have lower suspicion for cervicitis and PID. CT shows: CT abd/pelvis: IMPRESSION: No nephrolithiasis, hydronephrosis, or obstructive uropathy. Presentation is most consistent w/UTI/cystitis. Patient was treated with Bactrim. At this time, pain is well-controlled, she is comfortable and is appropriate for discharge. Patient was counseled on supportive care at home, given return precautions and discharged in stable condition with recommendation for outpatient follow-up with primary care nurse or doctor. Lab Data 04/27/25 01:43 04/27/25 01:43 Radiology Impressions Abdomen/Pelvis CT 04/27/25 03:11 IMPRESSION: No nephrolithiasis, hydronephrosis, or obstructive uropathy. Laboratory Results WBC 10.30 10^3/uL (3.29-11.43) 04/27/25 01:43 RBC 3.96 10^6/uL (3.85-5.65) 04/27/25 01:43 Hgb 12.50 g/dL (11.27-16.99) 04/27/25 01:43 Hct 36.4 % (36-47) 04/27/25 01:43 MCV 91.9 fl (85-98) 04/27/25 01:43 MCH 31.6 pg (27-33) 04/27/25 01:43 MCHC 34.3 g/dL (30-55) 04/27/25 01:43 RDW 12.8 % (12.1-15.1) 04/27/25 01:43 Plt Count 410 10^3/cmm (157-399) H 04/27/25 01:43 MPV 9.4 fL (7.4-10.4) 04/27/25 01:43 Neut % (Auto) 55.1 % 04/27/25 01:43 Lymph % (Auto) 34.5 % 04/27/25 01:43 [place] % (Auto) 7.1 % 04/27/25 01:43 Eos % (Auto) 2.4 % 04/27/25 01:43 Baso % (Auto) 0.7 % 04/27/25 01:43 Neut # (Auto) 5.68 10^3/uL (1.8-7.7) 04/27/25 01:43 Lymph # (Auto) 3.6 10^3/uL (0.8-4.8) 04/27/25 01:43 [place] # (Auto) 0.7 10^3/uL (0.2-0.9) 04/27/25 01:43 Eos # (Auto) 0.3 10^3/uL (0.0-0.8) 04/27/25 01:43 Baso # (Auto) 0.1 10^3/uL (0.0-0.1) 04/27/25 01:43 Nucleated RBC % (auto) 0 % 04/27/25 01:43 Nucleated RBCs # 0.0 /100WBC 04/27/25 01:43 Sodium 136 mmol/L (136-145) 04/27/25 01:43 Potassium 3.3 mmol/L (3.5-5.1) L 04/27/25 01:43 Chloride 100 mmol/L (98-107) 04/27/25 01:43 Carbon Dioxide 23 mmol/L (22-29) 04/27/25 01:43 Anion Gap 16.3 (5-19) 04/27/25 01:43 BUN 10 mg/dL (6-20) 04/27/25 01:43 Creatinine 1.0 mg/dL (0.5-0.9) H 04/27/25 01:43 GFR Calculation 60.8 mL/min (90-130) L 04/27/25 01:43 Glucose 104 mg/dL (65-115) 04/27/25 01:43 Calculated Osmolality 281 mOsm/kg (285-295) L 04/27/25 01:43 Calcium 9.4 mg/dL (8.5-10.5) 04/27/25 01:43 HCG, Qual Negative (Negative) 04/27/25 01:43 Urine Color Yellow (Yellow) 04/27/25 02:40 Urine Appearance Cloudy (CLEAR) A 04/27/25 02:40 Urine pH 5.5 (5-7) 04/27/25 02:40 Ur Specific [place] 1.021 (1.005-1.030) 04/27/25 02:40 Urine Protein Negative (Negative) 04/27/25 02:40 Urine Glucose (UA) Negative (Normal) 04/27/25 02:40 Urine Ketones Trace (Negative) 04/27/25 02:40 Urine Blood 2+ (Negative) A 04/27/25 02:40 Urine Nitrate Negative (Negative) 04/27/25 02:40 Urine Bilirubin Negative (Negative) 04/27/25 02:40 Urine Urobilinogen 1.0 mg/dL (Negative) 04/27/25 02:40 Ur Leukocyte Esterase 1+ (Negative) A 04/27/25 02:40 Urine RBC 51-100 /hpf (0-2) H 04/27/25 02:40 Urine WBC 11-20 /hpf (0-5) H 04/27/25 02:40 Ur Squamous Epith Cells 0-5 /hpf (0-5) 04/27/25 02:40 Amorphous Sediment Not Reportable 04/27/25 02:40 Urine Bacteria 1+ /hpf (NONE) H 04/27/25 02:40 Hyaline Casts 5.77 /lpf 04/27/25 02:40 Urine Mucus 2+ /hpf 04/27/25 01:43 C. trachomatis (PCR) Not detected (Negative) 04/27/25 02:40 N. gonorrhoeae (PCR) Not detected (Negative) 04/27/25 02:40 All radiology interpretation(s) finalized by discharge Discharge Plan Discharge Patient Disposition: Home Clinical Impression: Urinary tract infection Qualifiers: Urinary tract infection type: acute cystitis Hematuria presence: with hematuria Qualified Code(s): N30.01 - Acute cystitis with hematuria Condition: Stable Prescriptions: New sulfamethoxazole-trimethoprim [Bactrim DS] 800-160 mg tablet 1 tab PO BID 7 Days Qty: 14 0RF No Action bupivacaine (PF) 0.25 % (2.5 mg/mL) solution 2 ml Infiltration ONCE Qty: 1 0RF bupivacaine (PF) 0.25 % (2.5 mg/mL) solution 1 ml Infiltration ONCE Qty: 1 0RF trospium 60 mg capsule,extended release 24hr 60 mg PO DAILY Rx Instructions: must be taken on empty stomach at least 1 hour before a meal/food with water only etonogestrel-ethinyl estradiol [NuvaRing] 0.12-0.015 mg/24 hr ring 1 vag ring vaginal .ONCE EVERY 4 WEEKS Qty: 3 3RF Rx Instructions: INSERT ONE RING VAGINALLY EVERY 4 WEEKS ivermectin [Soolantra] 1 % cream 1 applic topical DAILY Qty: 45 2RF Rx Instructions: Apply to clean dry face once daily in the morning semaglutide 1 mg/dose (4 mg/3 mL) pen injector 1 mg SUBCUT levothyroxine 75 mcg tablet See Rx Instructions .ROUTE .COMPLEX Qty: 90 2RF Dose Instruction: Take 1 tablet by mouth once daily Rx Instructions: Take 1 tablet by mouth once daily (DME) COVID vaccine See Rx Instructions .ROUTE .MEDSUPPLY Qty: 1 0RF Rx Instructions: Give 1 dose IM per guidelines Zyrtec 10 mg Tablet 10 mg PO BEDTIME Discharge Orders: Discharge ED (Routine); Ordered 04/27/25 Ordered By: Loreto Middleton Referrals: Gurjit Echevarria MD [Primary Care Provider, Family Practice] Patient Instructions: Opioid Safety, Pain Management, Patient Portal & [facility] Instructions, Urinary Tract Infection - Women Activity Restrictions/Additional Instructions: Please continue to monitor your condition closely at home. Take Ibuprofen 400mg and Tylenol 500-1000mg every six hours for pain and inflammation. Take your antibiotics as prescribed. You may take over the counter Azo to help relieve your symptoms. If your condition worsens or additional concerns arise, please return promptly to the emergency department for reassessment. Follow up with your primary care doctor in one week. Stand Alone Forms: Work/School Release Print Language: Palestinian Coding Level of Care Code ED Fringing Machine Operator for Aminta Phillips
[2025-04-27 03:35] LABS: Anion Gap 16.3 (5-19); Blood Urea Nitrogen 10 mg/dL (6-20); Calcium 9.4 mg/dL (8.5-10.5); Carbon Dioxide 23 mmol/L (22-29); Chloride 100 mmol/L (98-107); Creatinine Clr Calc Pharmacy 79.7051; Glucose 104 mg/dL (65-115); Osmolality Calculated 281 mOsm/kg (285-295); Potassium 3.3 mmol/L (3.5-5.1); Sodium 136 mmol/L (136-145)
[2025-04-27 04:19] LABS: Neisseria Gonorrhea NOT DETECTED (Negative)
== END 2025-04-27 06:05 | disposition home or self-care (01) ==
PROVIDERS: Emergency Provider Emergency Medicine; PCP Family Medicine
DX: N30.01 Acute cystitis with hematuria (principal)
CPT/HCPCS: 74176; 80048; 81001; 81025; 85025; 87086; 87491; 87591; 96374; 96375; 99285; J1885; J2405

== ENCOUNTER → 2025-05-25 07:11 | Outpatient (BNVA) | payer OTHER, SELFPAY | PROVIDERS: PCP Family Medicine; Visit Provider Podiatrist Foot & Ankle Surgery | DX: M79.671 Pain in right foot (principal); M77.8 Other enthesopathies, not elsewhere classified | CPT/HCPCS: 73630 ==